=== PATIENT | male | born 1945 | race Caucasian/White ===

== ENCOUNTER 2018-12-15 10:14 | Day surgery (SDC) | payer MEDICARE ==
[2018-12-15] MEDS ORDERED: LIDOCAINE 2% MDV (20MG/ML) 20ML VIAL IV ONE (10:15)
[2018-12-15] MEDS ORDERED: PROPOFOL 10 MG/ML VIAL IV ONE (10:15)
--- NOTE | 2018-12-16 10:41 | Operative Note ---
DATE OF SURGERY: 12/15/2018 OPERATION: ESOPHAGOGASTRODUODENOSCOPY with partial snare removal of duodenal polyp. PREOPERATIVE DIAGNOSIS: Duodenal polyp followup. POSTOPERATIVE DIAGNOSIS: Recurrent duodenal polyp. PROCEDURE: After informed consent was obtained from the patient, she was placed in the left lateral decubitus position in the endoscopy suite, sedated and monitored by the department of anesthesia. A well-lubricated NGI340 gastroscope was placed in the posterior oropharynx under direct visualization and passed to the proximal esophagus. The endoscope was advanced through the proximal, mid, and distal esophagus through the gastric body, antrum, pylorus, and into the second portion of the duodenum where ink was seen as was a polyp near this area. This polyp was approximately 1.2 cm and was sessile. The polyp was partially removed with a polypectomy snare and ERBE Endocut current. There was scant amount of blood at the site. The remainder of the polyp was unable to be accessed given its location. In addition, further instrumentation and technology will require patient to have this procedure performed at [facility]. At that point, it was felt the patient might require endolift for the purpose of raising the polyp as well as other advanced endoscopic techniques. The patient should avoid aspirin and nonsteroidal products if possible for the next 2 weeks. He will be scheduled for polyp removal in the next few weeks. As always, thank you for allowing me to participate in the healthcare of your patients. CC: BERNARDINO CABELLO MD, FACP [facility]
== END 2018-12-15 12:15 | disposition home or self-care (01) ==
LOC: HOP 10:14
PROVIDERS: ATTEND Internal Medicine Gastroenterology
DX: Z87.19 Personal history of other diseases of the digestive system (principal); D13.2 Benign neoplasm of duodenum; I10 Essential (primary) hypertension; E78.00 Pure hypercholesterolemia, unspecified